=== PATIENT | male | born 1985 ===

== ENCOUNTER 2020-03-25 09:55 | Emergency (ER) | payer BC, SELFPAY ==
--- NOTE | ~2020-03-25 | US_ITS ---
EXAMINATION: US scrotum doppler DATE: 03/25/2020 10:57 INDICATION: Scrotal pain post recent facetectomy TECHNIQUE: Testicular sonogram utilizing grayscale and Doppler COMPARISON: None. FINDINGS: The right testis measures 5.1 x 3.3 x 3.4 cm. The left testis measures 4.8 x 3.2 x 3.2 cm. Symmetric normal grayscale appearance to both testes. There is normal vascular flow to both testes with arteria l and venous waveforms identified in both testes. The right epididymis is normal with normal vascular flow. The left epididymis is normal with normal vascular flow. There is no varicocele or hydrocele. IMPRESSION: 1. Normal scrotal ultrasound. Reviewed, dictated and finalized at location A.
[2020-03-25 10:00] VITALS: BP 154/107; PULSE 108; RESP 18; TEMP 37.6; O2SAT 97
[2020-03-25 10:30] LABS: Add Urine Microscopic? YES; Appearance Urine Cloudy (Clear); Bilirubin Urine Negative (Negative); Blood Urine 3+ (Negative); Color Urine Amber (Yellow); Glucose Urine UA Negative (Negative); Ketones Urine Trace mg/dL (Negative); Leukocyte Esterase Ur 3+ LEU/UL (Negative); Mucus Urine Heavy /lpf; Nitrate Urine Negative (Negative); Protein Urine 2+ mg/dL (Negative); RBC Urine >75 /hpf (0-2); WBC Urine >75 /hpf
--- NOTE | 2020-03-25 10:36 | ED.MALEGU ---
HPI - Male Genitourinary General Chief complaint: Urogenital-Male <Melia Davis PA-C - Last Filed: 03/25/20 13:04> Stated complaint: PISSING BLOOD, URINE BLOCKED <Melia Davis PA-C - Last Filed: 03/25/20 13:04> Time Seen by Provider: 03/25/20 10:09 <Melia Davis PA-C - Last Filed: 03/25/20 13:04> Source: patient <Melia Davis PA-C - Last Filed: 03/25/20 13:04> Mode of arrival: ambulatory <Melia Davis PA-C - Last Filed: 03/25/20 13:04> Limitations: no limitations <Melia Davis PA-C - Last Filed: 03/25/20 13:04> History of Present Illness HPI Narrative: This is a 34-year-old male that presents to the emergency department for hematuria x2 days. Also reports dysuria and frequency. Reports he had a vasectomy in [place] about a week and a half ago. Reports chills. Denies fever, abdominal pain, nausea, or vomiting. <Melia Davis PA-C - Last Filed: 03/25/20 13:04> Related Data Allergies/Adverse reactions: Allergies Allergy/AdvReac Type Severity Reaction Status Date / Time No Known Allergies Allergy Verified 03/25/20 10:03 <Melia Davis PA-C - Last Filed: 03/25/20 13:04> Review of Systems Review of Systems: Narrative: CONSTITUTIONAL: Denies fever GASTROINTESTINAL: Denies abdominal pain, nausea, vomiting GENITOURINARY: Reports dysuria and hematuria. <Melia Davis PA-C - Last Filed: 03/25/20 13:04> All systems reviewed & are unremarkable except as noted in HPI and below <Melia Davis PA-C - Last Filed: 03/25/20 13:04> [facility] Surgical History Surgical History: Surgical History (Updated 03/25/20 @ 10:37 by Melia Davis PA-C) History of vasectomy <Melia Davis PA-C - Last Filed: 03/25/20 13:04> Family History Family History: Family History (Updated 07/01/15 @ 14:50 by DOCTOR UNKNOWN) Other Diabetes mellitus Family history of cardiovascular disease Family history of malignant neoplasm Hypertension <Melia Davis PA-C - Last Filed: 03/25/20 13:04> Social History Social History: Social History (Updated 03/25/20 @ 10:37 by Melia Davis PA-C) Alcohol intake: current Substance use: never <Melia Davis PA-C - Last Filed: 03/25/20 13:04> Exam Narrative: Exam Narrative: GENERAL: Well-appearing, well-nourished, and in no acute distress. HEAD: Normocephalic, atraumatic. EYES: EOMI. CHEST: Clear to auscultation. No respiratory distress. No wheezes rales or rhonchi HEART: Regular rate and rhythm. No murmur heard. Normal peripheral pulses. ABDOMEN: Soft, nontender, nondistended, normal active bowel sounds. EXTREMITIES: Normal range of motion. No edema. SKIN: Warm, dry, no rash. NEURO: No focal deficits. Alert and oriented x3. PSYCH: Normal mood and affect MALE GENITAL: Normal external genitalia. No testicular tenderness. Small (1cm) incision on the scrotum clean, dry and intact without any surrounding erythema or edema <Melia Davis PA-C - Last Filed: 03/25/20 13:04> Course Consultations Consultation #1: I spoke with the nurse practitionerCecy with his doctor about work-up. Patient will have close follow-up in clinic later this week. He will be placed on oral antibiotics. <Melia Davis PA-C - Last Filed: 03/25/20 13:04> Vital Signs Vital signs: Vital Signs Temperature 37.6 C 03/25/20 10:00 Pulse Rate 108 H 03/25/20 10:00 Respiratory Rate 18 03/25/20 10:00 Blood Pressure 154/107 H 03/25/20 10:00 Pulse Oximetry 97 03/25/20 10:00 Temperature 37.6 C 03/25/20 10:00 Pulse Rate 85 03/25/20 13:15 Respiratory Rate 18 03/25/20 13:15 Blood Pressure 148/97 H 03/25/20 13:15 Pulse Oximetry 99 03/25/20 13:15 <Melia Davis PA-C - Last Filed: 03/25/20 13:04> Vital Signs Temperature 37.6 C 03/25/20 10:00 Pulse Rate 108 H 03/25/20 10:00 Respiratory Rate 18 03/25/20 10:00 Blood Pressure 154/107 H 03/25/20
[2020-03-25 10:40] LABS: Specific Grav Ur 1.032 (1.001-1.035)
[2020-03-25 11:08] LABS: Basophils Absolute Auto 0.1 K/mm3 (0.0-0.1); Basophils Percent Auto 0.3 % (0.2-1.2); Eosinophils Absolute Auto 0.1 K/mm3 (0-0.3); Eosinophils Percent Auto 0.5 % (0-4.4); Hematocrit 40.1 % (42.0-52.0); Hemoglobin 13.7 g/dL (14.0-18.0); Immature Granulocyte Absolute 0.06 K/mm3 (0.00-0.031); Immature Granulocyte Percent A 0.4 % (0-0.5); Lymphocytes Absolute Auto 1.46 K/mm3 (0.9-3.2); Lymphocytes Percent Auto 10.2 % (18.3-44.2); Mean Corpuscular HGB Conc 34.2 g/dl (32-36); Mean Corpuscular Hemoglobin 30.5 pg (26-34); Mean Corpuscular Volume 89.3 fl (80-100); Mean Platelet Volume 9.7 fl (7.4-10.4); Monocytes Absolute Auto 0.8 K/mm3 (0.1-0.6); Monocytes Percent Auto 5.7 % (2.6-8.5); Neutrophils Absolute Auto 11.9 K/mm3 (1.3-6.7); Neutrophils Percent Auto 82.9 % (45.5-73.1); Platelet Count Result 303 k/mm3 (150-375); Red Blood Count 4.49 M/mm3 (4.6-6.20); Red Cell Distribution Width 11.6 % (11.5-14.5); White Blood Count 14.4 K/mm3 (4.5-10.0)
[2020-03-25 11:19] LABS: Lactic Acid Reflex 0.8 mmol/L (0.7-2.1)
[2020-03-25 11:25] LABS: Anion Gap 9 mmol/L (8-16); Blood Urea Nitrogen 15 mg/dL (9-20); Calcium 9.3 mg/dL (8.4-10.2); Carbon Dioxide 28 mmol/L (22-30); Chloride 99 mmol/L (98-107); Estimated CRCL calculation 105 ml/min; Estimated Glomerular Filt Rate > 60; Glucose 100 mg/dL (75-110); Potassium 3.9 mmol/L (3.4-5.0); Sodium 136 mmol/L (137-145)
[2020-03-25] MEDS: SODIUM CHLORIDE 0.9% IV 1,000 ML 999 ML IV CONT (11:26)
[2020-03-25 11:34] LABS: Erythrocyte Sedimentation Rate 95 mm/hr (0-20)
[2020-03-25 11:45] LABS: CRP 19.1 mg/dL (<1.0)
[2020-03-25 13:15] VITALS: BP 148/97; PULSE 85; RESP 18; O2SAT 99
== END 2020-03-25 13:16 | disposition home or self-care (01) ==
PROVIDERS: Physician Assistant; Emergency Provider Emergency Medicine; PCP Internal Medicine
DX: N30.01 Acute cystitis with hematuria (principal); Z98.52 Vasectomy status
CPT/HCPCS: 36415; 76870; 80048; 81001; 83605; 85025; 85652; 86140; 87040; 87077; 87086; 87088; 87186; 93976; 96361; 96365; 99284; J0696; J7030

== ENCOUNTER 2020-04-25 07:21 | Outpatient (CLI) | payer BC, SELFPAY ==
[2020-04-25 07:51] LABS: Post Vasectomy Sperm Presence None Seen (None Seen)
== END 2020-04-25 07:22 | disposition home or self-care (01) ==
PROVIDERS: PCP Family Medicine; Visit Provider Family Medicine
DX: Z98.52 Vasectomy status (principal)
CPT/HCPCS: 88160; 89321

== ENCOUNTER 2020-06-15 07:21 | Outpatient (CLI) | payer BC, SELFPAY ==
[2020-06-15 07:56] LABS: Post Vasectomy Sperm Presence None Seen (None Seen)
== END 2020-06-15 07:22 | disposition home or self-care (01) ==
LOC: CHSLAB 07:23
PROVIDERS: Visit Provider Family Medicine
DX: Z98.52 Vasectomy status (principal)
CPT/HCPCS: 88160; 89321

== ENCOUNTER 2024-03-16 11:37 | Emergency (ER) | payer OTHER, SELFPAY ==
--- NOTE | ~2024-03-16 | XR_ITS ---
XR cervical spine 4-5V Ordering provider: MICKIE Martines History: . pain , radiculopathy. No trauma . Comparison: None. FINDINGS: VERTEBRAL BODIES: Normal height and alignment. No visible fracture or subluxation. The dens is intact . DISK SPACES: Well maintained. Intervertebral foramina are normal. PARASPINOUS SOFT TISSUES: No prevertebral soft tissue swelling. IMPRESSION: No acute osseous abnormality cervical spine. Reviewed, dictated and finalized at location A.
[2024-03-16 11:47] VITALS: BP 154/114; PULSE 69; RESP 18; TEMP 36.6; O2SAT 98
--- NOTE | 2024-03-16 12:06 | ED.GENADULT ---
HPI - General Adult General Chief complaint: Neck Pain/Injury Stated complaint: Neck/Left Arm Pain Time Seen by Provider: 03/16/24 11:54 Source: patient and RN notes reviewed Mode of arrival: ambulatory Limitations: no limitations History of Present Illness HPI narrative: Patient presents today complaining of left neck and shoulder pain. Reports symptoms started at the beginning of the year after a nonspecific pulled muscle, gym related injury that resolved after a few weeks. Symptoms worsened again 2 mos ago. States pain radiates from the neck down to the hand intermittently as well as intermittent numbness and tingling to the arm and hand. Pain increases with movement of the neck and shoulder. He has been seeing a chiropractor and take motrin. Chiropractor recommended seeking medical care after patient was not experiencing any relief from their treatments. Currently rates his pain 01/23. Related Data Allergies Allergy/AdvReac Type Severity Reaction Status Date / Time No Known Allergies Allergy Verified 03/25/20 10:03 Review of Systems Review of Systems: CONSTITUTIONAL: Denies body aches, fever, chills, or sweats. EYES: Denies visual changes, redness, or discharge. ENT: Denies rhinorrhea, congestion, sore throat, or otalgia. CARDIOVASCULAR: Denies chest pain, palpitations, or edema. RESPIRATORY: Denies cough or dyspnea. GASTROINTESTINAL: Denies abdominal pain, nausea, vomiting, or diarrhea. GENITOURINARY: Denies dysuria or hematuria. SKIN: Denies rash, itching, or wounds. MUSCULOSKELETAL: Left neck and arm pain NEUROLOGIC: Denies headache. Left arm numbness and tingling PSYCH: Denies depression or anxiety. [facility] Surgical History Surgical History History of vasectomy Family History Family History Other Diabetes mellitus Family history of cardiovascular disease Family history of malignant neoplasm Hypertension Social History Social History Alcohol intake: current Substance use: never Comments At time of signature, I have reviewed and agree with nursing past medical, surgical, social and family history unless otherwise noted. Please see nursing chart for further information. There is no relevant family history pertinent to the presenting complaint Exam Narrative: GENERAL: Well-appearing, well-nourished, and in no acute distress. HEAD: Normocephalic, atraumatic. EYES: EOMI. No redness or drainage. Conjunctivae normal. ENT: Mucous membranes pink and moist. NECK: Normal AROM with increased pain. Neck is nontender. CHEST: No respiratory distress. EXTREMITIES: Shoulder and trapezius is nontender. Arm is nontender. Distal sensation intact. Capillary refill normal. Radial pulses normal. Hand fishing accessories maker equal and strong. SKIN: Warm, dry, no rash. Capillary refill normal. Normal skin turgor. NEURO: No focal deficits. Alert and oriented x3. Gait steady. PSYCH: Normal affect. No signs of depression or anxiety. Course Course Level of Care: Express Care Visit Vital Signs Vital signs: Vital Signs Temperature 97.8 F 03/16/24 11:47 Pulse Rate 69 03/16/24 11:47 Respiratory Rate 18 03/16/24 11:47 Blood Pressure 154/114 H 03/16/24 11:47 Pulse Oximetry 98 03/16/24 11:47 Oxygen Delivery Room Air 03/16/24 11:47 Temperature 97.8 F 03/16/24 11:47 Pulse Rate 69 03/16/24 11:47 Respiratory Rate 18 03/16/24 11:47 Blood Pressure 154/114 H 03/16/24 11:47 Pulse Oximetry 98 03/16/24 11:47 Oxygen Delivery Room Air 03/16/24 11:47 reviewed Medical Decision Making MDM Narrative Medical decision making narrative: X-rays are negative for acute findings. Prescriptions for prednisone and Flexeril sent to pharmacy. Recommend PCP follow-up in 1 week if symptoms persist. Patient ag
== END 2024-03-16 12:38 | disposition home or self-care (01) ==
PROVIDERS: Emergency Provider Nurse Practitioner
DX: M54.2 Cervicalgia (principal); Z98.52 Vasectomy status
CPT/HCPCS: 72050; 99213; G0463

== ENCOUNTER 2024-05-05 09:06 | Outpatient (CLI) | payer OTHER, SELFPAY ==
--- NOTE | ~2024-05-05 | CT_ITS ---
EXAMINATION: CT cervical spine wo con DATE: 05/05/2024 09:40 INDICATION: Left neck pain. TECHNIQUE: Computed tomography (CT) of the cervical spine was performed without intravenous contrast. Automated exposure control and iterative reconstruction technique were employed. The dose-length pro duct was 305.39 mGy-cm. COMPARISON: Cervical spine radiographs 03/16/2024 FINDINGS: There are nodules in the thyroid measuring up to 11 mm, likely not clinically significant. There is 3 degrees levocurvature of cervical spine. There is kyphosis of cervical spine. Vertebral blue dy heights are normal. There is mildly decreased disc height at C4-C5. The following disc levels are specifically discussed: C2-C3: There is mild bilateral uncovertebral joint osteoarthritis. There is no facet joint osteoarthr itis. There is no neural foraminal stenosis. There is mild central canal stenosis. C3-C4: There is mild bilateral uncovertebral joint osteoarthritis. There is no facet joint osteoarthr itis. There is no neural foraminal stenosis. There is mild central canal stenosis. C4-C5: There is mild left uncovertebral joint osteoarthritis. There is mild right and moderate left f acet joint osteoarthritis. There is mild left neural foraminal stenosis. There is mild central canal stenosis. C5-C6: There is mild bilateral uncovertebral joint osteoarthritis. There is mild left facet joint ost eoarthritis. There is mild left neural foraminal stenosis. There is mild central canal stenosis. C6-C7: There is no uncovertebral joint osteoarthritis. There is no facet joint osteoarthritis. There is no neural foraminal stenosis. There is no central canal stenosis. C7-T1: There is mild left uncovertebral joint osteoarthritis. There is severe bilateral facet joint o steoarthritis. There is mild bilateral neural foraminal stenosis. There is no central canal stenosis. IMPRESSION: 1. Mild cervical spondylosis. Reviewed, dictated and finalized at location A.
== END 2024-05-05 09:07 | disposition home or self-care (01) ==
LOC: MICIMG 09:07
PROVIDERS: PCP Internal Medicine; Visit Provider Internal Medicine
DX: M54.2 Cervicalgia (principal); M47.892 Other spondylosis, cervical region
CPT/HCPCS: 72125

== ENCOUNTER 2024-05-19 12:40 | Outpatient (CLI) | payer OTHER, SELFPAY ==
--- NOTE | ~2024-05-19 | MR_ITS ---
EXAMINATION: MR cervical spine wo con DATE: 05/19/2024 13:20 INDICATION: Left neck pain. TECHNIQUE: Magnetic resonance imaging (MRI) of the cervical spine was performed without intravenous c ontrast. COMPARISON: CT cervical spine 05/05/2024 FINDINGS: There is kyphosis of cervical spine. There is mild chronic anterior wedging of C6 vertebral body. Intervertebral disc heights are normal. The following disc levels are specifically discussed: C2-C3: The disc does not extend beyond the endplate margin. There is no uncovertebral joint osteoarth ritis. There is mild bilateral facet joint osteoarthritis. There is no neural foraminal stenosis. The re is no central canal stenosis. C3-C4: There is a central protrusion. There is no uncovertebral joint osteoarthritis. There is mild b ilateral facet joint osteoarthritis. There is no neural foraminal stenosis. There is mild central can al stenosis. C4-C5: The disc does not extend beyond the endplate margin. There is mild left uncovertebral joint os teoarthritis. There is mild right and moderate left facet joint osteoarthritis. There is mild left ne ural foraminal stenosis. There is no central canal stenosis. C5-C6: There is a left central and left foraminal extrusion. There is mild bilateral uncovertebral ihsan int osteoarthritis. There is mild bilateral facet joint osteoarthritis. There is moderate left neural foraminal stenosis. There is mild central canal stenosis. There is severe stenosis of the lateral re cess. C6-C7: The disc does not extend beyond the endplate margin. There is mild bilateral uncovertebral mahi nt osteoarthritis. There is mild bilateral facet joint osteoarthritis. There is mild left neural fora rinku stenosis. There is no central canal stenosis. C7-T1: The disc does not extend beyond the endplate margin. There is no uncovertebral joint osteoarth ritis. There is severe bilateral facet joint osteoarthritis. There is mild bilateral neural foraminal stenosis. There is no central canal stenosis. IMPRESSION: 1. 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 Reviewed, dictated and finalized at location A.
== END 2024-05-19 12:41 | disposition home or self-care (01) ==
LOC: MICIMG 12:42
PROVIDERS: PCP Internal Medicine; Visit Provider Internal Medicine
DX: M50.222 Other cervical disc displacement at C5-C6 level (principal)
CPT/HCPCS: 72141